=== PATIENT | male | born 1935 | race Caucasian/White ===

== ENCOUNTER → 2019-11-14 | Outpatient (CLI) | payer MEDICARE ==
[~2019-11-14] MED LIST: FISH OIL 1,0001 EAC9 PO; IOPAMIDOL 370 MG/ML 200 ML INFUS..BTL INJ ONE; SODIUM CHLORIDE 0.9% 250ML 250 ML ONE; Z.0.LIPITOR10 MG PO; Z.0.MULTIVITAMINS1 E PO; Z.0.PROSCAR5 MG PO; Z.0.VITAMIN C500 MG PO; Z.0.XARELTO20 MG PO; [UNRECOGNIZED DRUG - OTHER] PO
[2019-11-14 11:32] LABS: CREATININE, SERUM 1.15 mg/dL (0.72-1.25)
--- NOTE | 2019-11-14 12:51 | Diagnostic Imaging Report ---
CT of the abdomen and pelvis, without and with contrast. History: Hematuria. Comparison: CT abdomen/pelvis without with contrast from 10/31/2009. Technique: Multidetector CT scanning of the abdomen and pelvis was performed from the level of the lung bases to the inferior pubic rami before and after intravenous administration of contrast according to hematuria protocol. Coronal and sagittal multiplanar and three-dimensional reformations were obtained. RADIATION DOSE: Total DLP: 1523.66 mGy*cm Dose modulation, iterative reconstruction, and/or weight based adjustment of the mA/kV was utilized to reduce the radiation dose to as low as reasonably achievable. FINDINGS: The lung bases are remarkable for mild bibasilar atelectasis. Partially visualized pacing leads noted. Atherosclerotic indications noted within the coronary arteries. The liver is normal in size and attenuation. Granulomatous calcifications are noted within the liver and spleen. No suspicious focal hepatic abnormality is identified. The gallbladder is unremarkable. There is no biliary ductal dilatation. The stomach, spleen, pancreas, and bilateral adrenal glands are unremarkable. The kidneys are normal in location with areas of cortical scarring noted bilaterally. The kidneys enhance and excrete contrast material symmetrically. There are 4 subcentimeter calcifications identified within the left kidney likely representing nonobstructive stones. There is no evidence for solid renal mass or hydronephrosis. Multiple nonenhancing hypodensities are identified bilaterally some which are compatible with simple cysts and some which are too small to definitively characterize but likely represent cysts. The largest cyst measures 6.7 x 9.3 cm and arises off the left kidney. There is a single collecting system and ureter identified bilaterally. The ureters are normal course and caliber without evidence of stone, filling defect, or other intrinsic/extrinsic abnormality. The prostate appears heterogeneous and is enlarged measuring up to 5.6 cm impressing upon the urinary bladder. The urinary bladder is otherwise unremarkable. The abdominal aorta is normal course and caliber with after cirrhotic calcifications. The IVC is unremarkable. Please note evaluation the bowel is limited without the use of enteric contrast material. The visualized loops of small and large bowel demonstrate no evidence of obstruction or inflammation. Extensive diverticula are noted within the sigmoid and descending colon without evidence for acute diverticulitis. There is no ascites or intraperitoneal free air. No abnormally enlarged lymph nodes are identified in abdomen or pelvis. There are multilevel degenerative changes present within the thoracolumbar spine. Degenerative changes also noted of the bilateral hips There is no evidence for acute fracture or destructive process. The extra peritoneal soft tissues are unremarkable. IMPRESSION: 1. Nonobstructive left-sided nephrolithiasis. No evidence for solid renal mass, hydronephrosis, or ureteral abnormality. 2. Prostatomegaly. 3. Diverticulosis coli without evidence for acute diverticulitis. Signed by: Dr. Francis Xiong MD on 11/14/2019 12:48 PM
== END ==
LOC: CT 10:24
PROVIDERS: ATTEND Urology
DX: R31.0 Gross hematuria (principal)
CPT/HCPCS: 36415; 74178; 82565; 84520; J7050; Q9967